=== PATIENT | female | born 1965 | race Caucasian/White ===

== ENCOUNTER 2024-05-21 16:07 | Emergency (ER) | payer OTHER, SELFPAY ==
[~2024-05-21] VITALS: Ht 162.6 cm; Wt 102.0 kg
[2024-05-21] MEDS: ACETAMINOPHEN 500 MG TAB PO ONE (19:00)
[2024-05-21] MEDS: KETOROLAC 60MG 2ML VIAL IM ONE (19:00)
[2024-05-21 19:48] LABS: KETONE, URINE AUTO RFX NEGATIVE (NEGATIVE); LEUKOCYTE ESTERASE UR AUTO RFX NEGATIVE (NEGATIVE); MUCUS, URINE RFX SMALL (NEGATIVE); NITRITE, URINE AUTO RFX NEGATIVE (NEGATIVE); RBC, URINE AUTO RFX 1 /HPF (0-3); SQUAM EPITHELIAL CELL UR AURFX 5 /HPF (0-6); WBC, URINE AUTO RFX 6 /HPF (0-3)
[2024-05-21] MEDS ORDERED: METH-1164 PO (21:27)
[2024-05-21 21:32] VITALS: BP 143/72; TEMP 97.6; O2SAT 98
== END 2024-05-21 21:58 | disposition home or self-care (01) ==
LOC: M ED 16:07
DX: S20.211A Contusion of right front wall of thorax, initial encounter (principal); W18.2XXA Fall in (into) shower or empty bathtub, initial encounter; K44.9 Diaphragmatic hernia without obstruction or gangrene; F17.200 Nicotine dependence, unspecified, uncomplicated; Y92.002 Bathroom of unspecified non-institutional (private) residence as the place of occurrence of the external cause; Y93.89 Activity, other specified; Y99.9 Unspecified external cause status
CPT/HCPCS: 71101; 71250; 73502; 74176; 81001; 96372; 99284; J1885